=== PATIENT | male | born 1975 | race Caucasian/White ===

== ENCOUNTER 2016-12-18 14:51 | Emergency (ER) | payer SELFPAY ==
[~2016-12-18 14:51] MED LIST: DEXAMETHASONE 10 MG/ML VIAL IVP ONE; EPINEPHrine RACEMIC INH 0.5 ML DEYVIAL IH ONE
[2016-12-18] MEDS ORDERED: EPINEPHrine RACEMIC INH 0.5 ML DEYVIAL IH ONE ×3 (14:53→15:09)
[2016-12-18] MEDS ORDERED: DEXAMETHASONE 10 MG/ML VIAL ONE (14:57)
[2016-12-18 15:07] VITALS: TEMP 98.4
--- NOTE | 2016-12-18 15:10 | EDPHY ---
H & P HPI/ROS: CHIEF COMPLAINT: Dyspnea HISTORY OF PRESENT ILLNESS: The patient is a 41 year old male, sent here from the ENT clinic with severe stridor. The patient was intubated in [place] in September because of aspiration pneumonia. Since October the patient has had multiple episodes of stridor and shortness of breath with whistle-like breathing. He was seen at [facility] on 11/27 and prescribed an albuterol inhaler. He did not use the inhaler and returned to the clinic 1 week later. He received steroids and his stridor improved. He went to the [facility] urgent [facility] clinic again today, they referred him to ENT. 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 Patient's airway is estimated at 4-5 mm in size. He denies fever, chills, chest pain. No vomiting, diarrhea, vomiting, diarrhea, urinary complaints, headache, or lightheadedness. No sputum production. No history of asthma. REVIEW OF SYSTEMS: Aside from elements discussed in the HPI, a comprehensive 10-point review of systems was reviewed and is negative. PAST MEDICAL HISTORY: Aspiration pneumonia. SOCIAL HISTORY: Nonsmoker. No alcohol. No drug use. 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 VITAL SIGNS: Reviewed by me GENERAL: Well-developed, well-nourished, audible stridor, tachypneic. Patient is able to speak in full sentences. HEENT: Atraumatic. Eyes: No icterus, no injection. Mouth: moist mucous membranes. No erythema or lesions. Neck: supple with no adenopathy. LUNGS: Audibly stridulous, no wheezes, lungs are clear to auscultation. Not hypoxic. Increased work of breathing, Suprasternal retractions. CARDIAC: Tachycardic, regular rhythm, no rubs, murmurs or gallops. ABDOMEN: Soft, nontender, nondistended, bowel sounds normal. BACK: No CVA tenderness. EXTREMITIES: No trauma. No edema. Range of motion is normal throughout. NEURO: Alert and oriented, grossly nonfocal. SKIN: Warm and dry, no rash. PSYCHIATRIC: Normal mentation, no agitation. Portions of this note were transcribed by a faculty i on call medical assistant. I personally performed a history, physical exam, medical decision making, and confirmed accuracy of information the transcribed note. Constitutional: Initial Vital Signs Temperature (C) 36.9 C 12/18/16 15:04 Heart Rate 113 H 12/18/16 15:04 Respiratory Rate 22 H 12/18/16 15:04 Blood Pressure 141/100 H 12/18/16 15:04 O2 Sat (%) 100 12/18/16 15:04 O2 Delivery Mode Nasal Cannula O2 (L/minute) 2 Allergies/Adverse Reactions: No Known Allergies Allergy (Unverified 12/18/16 15:04) Home Medications: Medication Instructions Recorded Metformin HCl 12/18/16 Medical Decision Making - Diagnostics Imaging: X-ray: chest was obtained. I viewed the images myself on the PACS system. My interpretation of the images is: Normal. The radiologist interpretation is pending at this time. I discussed the x-ray findings with the patient. X-ray: Soft tissue neck was obtained. I viewed the images myself on the PACS system. My interpretation of the images is: No signs of epiglottitis. The radiologist interpretation is pending at this time. I discussed the x-ray findings with the patient. ED Course/Re-evaluation: Patient presented to the emergency department in critical condition accompanied by HENRIETTA Hanks PA. Dr. Weiss recommends racemic epi, IV steroids, and advises me that the patient needs to be transferred to [facility] for dilatation of his airway. Dr. Weiss does not believe the patient is safe to be cared for at [facility]. The patient received IV 10mg Decadron and racemic epinephrine. Following these interventions patient was reexamined. His stridor has not significantly improved. He does remain alert, not hypoxic, quite conversant. He tells me that he has had these symptoms intermittently for days at a time over the last 2-3 months. The patient does get agitated or anxious, his stridor increases. 3:10 p.m.: I spoke to Dr. Plunkett, attending at [facility]. ENT, Josh Romo, discussed the patient's case with the ENT attending at [facility] as well. Patient will be transferred via helicopter to [facility] Emergency Department. He was placed on humidified O2. ENT will be present on the patient's arrival to the [facility] emergency department. Differential Diagnosis: Differential diagnoses for the patient's symptom complex was considered including but not limited to laryngeal spasm, epiglottitis, upper airway foreign body, subglottic stenosis, tracheitis, croup. Consult/Admit Bed Type: [facility] Emergency Department, Critical Care Time: Critical care time spent by Dr. Brock corea exclusively with this patient was 40 minutes, exclusive of PA time and exclusive of procedures. The organ system at risk was airway and I gave racemic epinephrine, IV steroids, and emergently transferred the patient to otolaryngology at the [facility] before airway dilatation and] to prevent worsening of the patients condition. - Data Points Medications Given: Discontinued Medications Dexamethasone (Decadron Injection) 10 mg IVP EDNOW ONE Stop: 12/18/16 14:51 Last Admin: 12/18/16 15:10 Dose: 10 mg Epinephrine (S-2) 0.5 ml IH EDNOW ONE Stop: 12/18/16 14:51 Last Admin: 12/18/16 15:10 Dose: 0.5 ml Epinephrine (S-2) 0.5 ml IH EDNOW ONE Stop: 12/18/16 15:10 Last Admin: 12/18/16 15:10 Dose: 0.5 ml Departure - Departure Disposition: Acute Care Hospital Not [facility] Clinical Impression: Stridor, Airway compromise, Subglottic stenosis Condition: Serious Referrals: NONE *PRIMARY CARE P,. [Primary Care Provider] - As per Instructions Report Scribed for: Evelin Gutiérrez Report Scribed by: Porsche Munoz Date of Report: 12/18/16 Time of Report: 15:10
[2016-12-18 16:10] VITALS: BP 139/79; PULSE 114; RESP 20; O2SAT 98
== END 2016-12-18 16:08 | disposition short-term general hospital (02) ==
DX: J38.6 Stenosis of larynx (principal); J98.8 Other specified respiratory disorders
CPT/HCPCS: 96374